=== PATIENT | female | born 2000 | race Hispanic/Latino ===

== ENCOUNTER 2020-01-12 19:08 | Emergency (ER) | payer SELFPAY ==
[~2020-01-12] VITALS: Ht 144.8 cm; Wt 40.8 kg
[2020-01-12] MEDS ORDERED: CIPROFLOXACIN 500 MG TAB PO SCH (21:15)
[2020-01-12] MEDS ORDERED: CIPROFLOXACIN 500 MG TAB ONE (21:20)
[2020-01-12] MEDS ORDERED: CIPRO500 MG PO (21:28)
[2020-01-12] MEDS ORDERED: PYRIDIUM100 MG PO (21:30)
[2020-01-12 21:45] VITALS: BP 117/68
== END 2020-01-12 21:45 | disposition home or self-care (01) ==
LOC: FSED 19:08
DX: R30.0 Dysuria (principal); N30.91 Cystitis, unspecified with hematuria
CPT/HCPCS: 80053; 81003; 81025; 85025; 87086; 87186; 99283